=== PATIENT | male | born 1960 | race Caucasian/White ===

== ENCOUNTER 2019-09-05 20:30 | Emergency (ER) | payer MEDICAID ==
[~2019-09-05] VITALS: Ht 190.5 cm; Wt 149.7 kg
[2019-09-05 20:35] VITALS: BP_SYST 161
[2019-09-06] MEDS ORDERED: DIPH-TET-PERTUS Vaccine 0.5 ML VIAL (ADACEL) I.M. ONE (05:45)
[2019-09-06] MEDS ORDERED: BACITRACIN 1 GM OINT TP ONE (05:46)
[2019-09-06 05:55] VITALS: BP_SYST 150
== END 2019-09-06 05:55 | disposition home or self-care (01) ==
LOC: SED 20:30
DX: S61.012A Laceration without foreign body of left thumb without damage to nail, initial encounter (principal); W29.8XXA Contact with other powered hand tools and household machinery, initial encounter; Y93.89 Activity, other specified; Y92.89 Other specified places as the place of occurrence of the external cause; Y99.8 Other external cause status
CPT/HCPCS: 90715; 99283

== ENCOUNTER 2023-02-05 23:12 | Observation (INO) | payer MEDICAID ==
[~2023-02-05] VITALS: Ht 195.6 cm; Wt 145.1 kg
[2023-02-05 23:20] VITALS: BP_SYST 167
--- NOTE | 2023-02-05 23:20 | NUR ---
Placed in room 3 . Placed on bus monitor, blood pressure machine and pulse oximeter. To gown for exam. Side rails up. Report given to RADU ANDERSON(VANESSA).
--- NOTE | 2023-02-05 23:38 | NUR ---
FIRST CONTACT WITH PT. ASSESSMENT COMPLETED. AWAITING EVAL AND ORDERS.
--- NOTE | 2023-02-06 00:50 | NUR ---
PT RESTING WITH FAMILY AT BEDSIDE.
[2023-02-06 01:26] LABS: BASOPHILS # (AUTO) 0.1 K/uL (0.0-0.2); BASOPHILS % (AUTO) 0.8 % (0.0-2.0); EOSINOPHILS # (AUTO) 0.2 K/uL (0.0-0.4); EOSINOPHILS % (AUTO) 3.5 % (0.0-4.0); HEMATOCRIT 44.9 % (36-54); HEMOGLOBIN 15.7 g/dL (14.0-18.0); LYMPHOCYTES # (AUTO) 2.3 K/uL (1.0-5.5); MEAN CORPUSCULAR HEMOGLOBIN 31 pg (27-31); MEAN CORPUSCULAR HGB CONC 35 % (32-36); MEAN CORPUSCULAR VOLUME 88 fL (79.0-98.0); MONOCYTES # (AUTO) 0.6 K/uL (0.0-1.0); MONOCYTES % (AUTO) 9.5 % (1.7-9.3); NEUTROPHILS # (AUTO) 3.4 K/uL (1.8-7.7); NEUTROPHILS % (AUTO) 51.2 % (40.0-70.0); PLATELET COUNT (AUTO) 117 K/uL (130-430); RED BLOOD CELL COUNT(AUTO) 5.13 MIL/uL (4.2-6.2); WHITE BLOOD COUNT (AUTO) 6.6 K/uL (4.8-10.8)
[2023-02-06 01:38] LABS: ALANINE AMINOTRANSFERASE 61 U/L (12-78); ALBUMIN 3.2 g/dL (3.4-4.8); ANION GAP 7 (5-15); ASPARTATE AMINOTRANSFERASE 35 U/L (10-37); CALCIUM 8.8 mg/dL (8.4-11.0); CHLORIDE 100 mmol/L (98-107); CREATININE 1.13 mg/dL (0.55-1.30); FREE T4 (FREE THYROXINE) 1.1 ng/dl (0.8-1.5); GFR AFRICAN AMERICAN 85 mL/min (>90); GLUCOSE 176 mg/dL (70-99); PHOSPHORUS 3.3 mg/dL (2.7-4.5); THYROID STIMULATING HORMONE 6.39 uIu/mL (0.36-3.74); TOTAL BILIRUBIN 0.5 mg/dL (0.0-1.0); UREA NITROGEN, BLOOD 22 mg/dL (8-21)
--- NOTE | 2023-02-06 02:00 | NUR ---
PT RESTING WITH NO ACUTE DISTRESS.
--- NOTE | 2023-02-06 04:00 | NUR ---
PT ASLEEP. NO SIGNS OF DISTRESS.
--- NOTE | 2023-02-06 04:52 | NUR ---
Yuli wisdom in [facility] - 02/06/23 at 0454 by SANDEEP ADMISSION ORDERS FROM [facility]
--- NOTE | 2023-02-06 04:54 | NUR ---
ADMISSION ORDERS FROM [facility]
--- NOTE | 2023-02-06 05:00 | NUR ---
Note [email or web address] in ED - 02/06/23 at 0511 by SANDEEP Admit bed requested Patient will be admitted to care of . Admitted to TELE unit. Diagnosis CHEST PAIN Inpatient (Yes or No) Y Observation (Yes or No)N Orientation concerns or request close to nursing station (Yes or No) N Covid Status NA On vent or bipap N Isolation requirements N Needs a sitter N From Home (Yes or if No enter name of facility) Y Requires Dialysis (Yes or No) N Med Rec Completed (Yes of No) Y
--- NOTE | 2023-02-06 05:11 | NUR ---
Admit bed requested Patient will be admitted to care of . Admitted to TELE unit. Diagnosis CHEST PAIN Inpatient (Yes or No) N Observation (Yes or No) Y Orientation concerns or request close to nursing station (Yes or No) N Covid Status NA On vent or bipap N Isolation requirements N Needs a sitter N From Home (Yes or if No enter name of facility) Y Requires Dialysis (Yes or No) N Med Rec Completed (Yes of No) Y
[2023-02-06] MEDS ORDERED: INSU100I75 SUBCUT (05:35)
[2023-02-06] MEDS ORDERED: METF1000 PO (05:35)
[2023-02-06] MEDS ORDERED: TOPXL100 PO (05:35)
[2023-02-06] MEDS ORDERED: LISI40TA20 PO (05:35)
[2023-02-06] MEDS ORDERED: APIX5TAB PO (05:35)
[2023-02-06] MEDS ORDERED: HYDR25TA4 PO (05:40)
[2023-02-06] MEDS ORDERED: LOSA50TA3 PO (05:40)
[2023-02-06] MEDS ORDERED: LORA10TA68 PO (05:40)
[2023-02-06] MEDS ORDERED: AMIO200T66 PO (05:40)
--- NOTE | 2023-02-06 05:59 | NUR ---
Patient will be admitted to care of [facility]. Admitted to TELEunit. Will go to room 119A . Belongings list completed. Complete and up to date summary report printed. SBAR report to be given at bedside with opportunity for questions.
[2023-02-06 06:01] VITALS: BP_SYST 161
--- NOTE | 2023-02-06 07:30 | NUR ---
OPENING NOTE PT RESTING IN BED, BREATHING NON-LABORED AND REGULAR. DENIES ANY PAIN OR DISCOMFORT. IV S/L REMAIN INTACT AND PATENT. BED IS LOCKED AND AT LOW POSITION. SAFETY PRECAUTION IN PLACE. WILL CONT TO MONITOR FOR ANY CHANGES
[2023-02-06 08:00] VITALS: BP_SYST 145
[2023-02-06] MEDS ORDERED: ACETAMINOPHEN 325 MG TABLET PO PRN ×2 (11:15→11:45)
[2023-02-06] MEDS ORDERED: ONDANSETRON HCL 4 MG/2 ML VIAL IVP PRN (11:15)
[2023-02-06] MEDS ORDERED: HYDROcodone/ACETAMIN 10-325 MG TAB PO PRN (11:15)
[2023-02-06] MEDS ORDERED: NALOXONE HCL 0.4 MG/ML AMP (NARCAN) IVP PRN ×2 (11:15)
[2023-02-06] MEDS ORDERED: HYDROcodone/ACETAMIN 5-325 MG TAB (NORCO/ VICODIN) PO PRN (11:15)
[2023-02-06] MEDS ORDERED: LORazepam 2 MG/ML VIAL IVP PRN (11:15)
--- NOTE | 2023-02-06 11:32 | NUR ---
NOTES; PT RESTING ON BED, DENIES ANY ACUTE DISTRESS OR PAIN NOTED. BED IS LOCKED AND AT LOW POSITION. WILL CONT TO MONITOR FOR ANY CHANGES
[2023-02-06] MEDS ORDERED: lisinopriL 20 MG TABLET PO ONE (11:45)
[2023-02-06] MEDS ORDERED: LORATADINE 10 MG TABLET PO ONE (11:45)
[2023-02-06] MEDS ORDERED: METOPROLOL SUCCINATE 50 MG TAB.SR.24H (TOPROL XL) PO ONE (11:45)
[2023-02-06] MEDS ORDERED: APIXABAN 2.5 MG TABLET PO ONE (11:45)
[2023-02-06] MEDS ORDERED: LOSARTAN POTASSIUM 50 MG TABLET (COZAAR) PO ONE (11:45)
[2023-02-06] MEDS ORDERED: metFORMIN HCL 500 MG TABLET PO ONE (11:45)
[2023-02-06 11:52] LABS: BASOPHILS % (AUTO) 0.8 % (0.0-2.0); EOSINOPHILS # (AUTO) 0.2 K/uL (0.0-0.4); EOSINOPHILS % (AUTO) 3.2 % (0.0-4.0); HEMATOCRIT 44.1 % (36-54); HEMOGLOBIN 15.4 g/dL (14.0-18.0); LYMPHOCYTES # (AUTO) 1.7 K/uL (1.0-5.5); LYMPHOCYTES % (AUTO) 30.3 % (20.5-51.5); MEAN CORPUSCULAR HEMOGLOBIN 31 pg (27-31); MEAN CORPUSCULAR HGB CONC 35 % (32-36); MEAN CORPUSCULAR VOLUME 89 fL (79.0-98.0); MONOCYTES # (AUTO) 0.6 K/uL (0.0-1.0); MONOCYTES % (AUTO) 9.8 % (1.7-9.3); NEUTROPHILS # (AUTO) 3.1 K/uL (1.8-7.7); NEUTROPHILS % (AUTO) 55.9 % (40.0-70.0); PLATELET COUNT (AUTO) 101 K/uL (130-430); RED BLOOD CELL COUNT(AUTO) 4.97 MIL/uL (4.2-6.2); RED CELL DISTRIBUTION WIDTH 13.1 % (9.0-15.0); WHITE BLOOD COUNT (AUTO) 5.6 K/uL (4.8-10.8)
[2023-02-06 12:11] LABS: CALCIUM 8.4 mg/dL (8.4-11.0); CREATININE 1.14 mg/dL (0.55-1.30)
[2023-02-06] MEDS ORDERED: NORMAL SALINE 5 ML DISP.SYRIN IVF SCH ×2 (14:00)
[2023-02-06 14:16] VITALS: BP_SYST 133
[2023-02-06] MEDS ORDERED: metFORMIN HCL 500 MG TABLET PO SCH (21:00)
[2023-02-06] MEDS ORDERED: APIXABAN 2.5 MG TABLET PO SCH (21:00)
[2023-02-07] MEDS ORDERED: LOSARTAN POTASSIUM 50 MG TABLET (COZAAR) PO SCH (09:00)
[2023-02-07] MEDS ORDERED: AMIODARONE HCL 200 MG TABLET PO SCH (09:00)
[2023-02-07] MEDS ORDERED: lisinopriL 20 MG TABLET PO SCH (09:00)
[2023-02-07] MEDS ORDERED: LORATADINE 10 MG TABLET PO SCH (09:00)
[2023-02-07] MEDS ORDERED: METOPROLOL SUCCINATE 50 MG TAB.SR.24H (TOPROL XL) PO SCH (09:00)
== END 2023-02-06 14:40 | disposition home or self-care (01) ==
LOC: SED 23:12 → STU 02-06 05:11
PROVIDERS: ADMIT Preventive Medicine Preventive Medicine/Occupational Environmental Medicine; ATTEND Preventive Medicine Preventive Medicine/Occupational Environmental Medicine
DX: R07.89 Other chest pain (principal); I48.91 Unspecified atrial fibrillation; I10 Essential (primary) hypertension; E11.9 Type 2 diabetes mellitus without complications; R79.89 Other specified abnormal findings of blood chemistry; E11.65 Type 2 diabetes mellitus with hyperglycemia; E88.09 Other disorders of plasma-protein metabolism, not elsewhere classified; E03.9 Hypothyroidism, unspecified; Z79.899 Other long term (current) drug therapy; Z86.79 Personal history of other diseases of the circulatory system; Z95.810 Presence of automatic (implantable) cardiac defibrillator
CPT/HCPCS: 93005; 71045; 99285; 80061; 80053; 83880; 84439; 83735; 84100; 84443; 85025; 84484; 36415; 93306; 80048; G0378

== ENCOUNTER 2023-12-30 15:55 | Inpatient (IN) | payer MEDICAID ==
[~2023-12-30] VITALS: Ht 190.5 cm; Wt 99.8 kg
[~2023-12-30 15:55] MED LIST: AMIO200T66 PO; APIX5TAB PO; HYDR25TA4 PO; INSU100I75 SUBCUT; LISI40TA20 PO; LORA10TA68 PO; LOSA-413 PO; METF1000 PO; TOPXL100 PO
[2023-12-30 16:01] VITALS: BP_SYST 156; PULSE 122; RESP 22; TEMP 98.4; O2SAT 95
[2023-12-30] MEDS ORDERED: cloNIDine HCL 0.1 MG TABLET ONE (16:08)
[2023-12-30 16:55] LABS: BASOPHILS # (AUTO) 0.1 K/uL (0.0-0.2); BASOPHILS % (AUTO) 0.8 % (0.0-2.0); EOSINOPHILS # (AUTO) 0.2 K/uL (0.0-0.4); EOSINOPHILS % (AUTO) 3.8 % (0.0-4.0); HEMATOCRIT 44.9 % (36-54); HEMOGLOBIN 15.7 g/dL (14.0-18.0); LYMPHOCYTES % (AUTO) 30.5 % (20.5-51.5); MEAN CORPUSCULAR HEMOGLOBIN 31 pg (27-31); MEAN CORPUSCULAR HGB CONC 35 % (32-36); MEAN CORPUSCULAR VOLUME 89 fL (79.0-98.0); MONOCYTES # (AUTO) 0.6 K/uL (0.0-1.0); NEUTROPHILS # (AUTO) 3.6 K/uL (1.8-7.7); NEUTROPHILS % (AUTO) 55.9 % (40.0-70.0); PLATELET COUNT (AUTO) 142 K/uL (130-430); RED BLOOD CELL COUNT(AUTO) 5.07 MIL/uL (4.2-6.2); RED CELL DISTRIBUTION WIDTH 13.3 % (9.0-15.0); WHITE BLOOD COUNT (AUTO) 6.4 K/uL (4.8-10.8)
[2023-12-30 17:01] LABS: PROTHROMBIN TIME 10.8 SECS (9.5-12.5)
[2023-12-30 17:06] LABS: CALCIUM 8.7 mg/dL (8.4-11.0); CREATININE 1.5 mg/dL (0.55-1.30); POTASSIUM 4.4 mmol/L (3.5-5.1)
[2023-12-30 17:07] LABS: ALBUMIN 3.5 g/dL (3.4-4.8); BILIRUBIN,DIRECT 0.2 mg/dL (0.0-0.3); TOTAL BILIRUBIN 0.7 mg/dL (0.0-1.0); TOTAL PROTEIN, SERUM 7.5 g/dL (6.4-8.3)
[2023-12-30] MEDS: dilTIAZem HCL IVP 5 MG/ML VIAL IVP ONE (17:11)
[2023-12-30] MEDS: DILTIAZEM HCL 60 MG TABLET PO ONE (17:11)
[2023-12-30] MEDS ORDERED: FENO160 PO (19:50)
[2023-12-30] MEDS ORDERED: AMLO5TAB4 PO (19:50)
[2023-12-30] MEDS ORDERED: TIRZ12.5 SQ (19:50)
[2023-12-30] MEDS ORDERED: GLUCOSE (DEXTROSE) ORAL GEL -Adults PO PRN (22:45)
[2023-12-30] MEDS ORDERED: D5W 1,000 ML IV PRN (22:45)
[2023-12-30] MEDS ORDERED: NALOXONE HCL 0.4 MG/ML AMP (NARCAN) IVP PRN ×2 (22:45)
[2023-12-30] MEDS ORDERED: LORazepam 2 MG/ML VIAL IVP PRN (22:45)
[2023-12-30] MEDS ORDERED: ONDANSETRON HCL 4 MG/2 ML VIAL IVP PRN (22:45)
[2023-12-30] MEDS ORDERED: ACETAMINOPHEN 325 MG TABLET PO PRN (22:45)
[2023-12-31] MEDS: HYDROcodone/ACETAMIN 5-325 MG TAB (NORCO/ VICODIN) PO PRN (06:58)
[2023-12-31 07:00] LABS: BASOPHILS % (AUTO) 0.8 % (0.0-2.0); EOSINOPHILS # (AUTO) 0.2 K/uL (0.0-0.4); EOSINOPHILS % (AUTO) 3.4 % (0.0-4.0); HEMATOCRIT 41.1 % (36-54); HEMOGLOBIN 14.3 g/dL (14.0-18.0); LYMPHOCYTES # (AUTO) 1.6 K/uL (1.0-5.5); LYMPHOCYTES % (AUTO) 27.1 % (20.5-51.5); MEAN CORPUSCULAR HEMOGLOBIN 31 pg (27-31); MEAN CORPUSCULAR HGB CONC 35 % (32-36); MEAN CORPUSCULAR VOLUME 89 fL (79.0-98.0); MONOCYTES # (AUTO) 0.5 K/uL (0.0-1.0); NEUTROPHILS # (AUTO) 3.5 K/uL (1.8-7.7); NEUTROPHILS % (AUTO) 59.7 % (40.0-70.0); PLATELET COUNT (AUTO) 130 K/uL (130-430); RED CELL DISTRIBUTION WIDTH 13.1 % (9.0-15.0); WHITE BLOOD COUNT (AUTO) 5.9 K/uL (4.8-10.8)
[2023-12-31 07:34] LABS: ALBUMIN 2.8 g/dL (3.4-4.8); CREATININE 1.3 mg/dL (0.55-1.30); PHOSPHORUS 3.1 mg/dL (2.7-4.5); POTASSIUM 3.9 mmol/L (3.5-5.1); TOTAL BILIRUBIN 0.7 mg/dL (0.0-1.0); TOTAL PROTEIN, SERUM 6.4 g/dL (6.4-8.3)
[2023-12-31] MEDS: INSULIN REGULAR, HUMAN 100 UNITS/ML, 3 ML VIAL (humuLIN R) SUBCUT PRN (08:03)
[2023-12-31] MEDS ORDERED: INSULIN REGULAR, HUMAN 10 UNITS/0.1 ML, 3 ML VIAL ONE (08:08)
[2023-12-31 09:37] VITALS: BP_SYST 116; PULSE 108; RESP 20; TEMP 98.1
[2023-12-31 09:55] VITALS: O2SAT 99
[2023-12-31] MEDS: LORATADINE 10 MG TABLET PO SCH (10:12)
[2023-12-31] MEDS: metFORMIN HCL 500 MG TABLET PO SCH (10:13)
[2023-12-31] MEDS: HYDROCHLOROTHIAZIDE 25 MG TABLET (HCTZ) PO SCH (10:14)
[2023-12-31] MEDS: amLODIPine BESYLATE 5 MG TABLET PO SCH (10:14)
[2023-12-31] MEDS: LOSARTAN POTASSIUM 50 MG TABLET (COZAAR) PO SCH (10:15)
[2023-12-31] MEDS: AMIODARONE HCL 200 MG TABLET PO SCH ×2 (10:16→20:14)
[2023-12-31] MEDS: METOPROLOL SUCCINATE 50 MG TAB.SR.24H (TOPROL XL) PO SCH ×2 (10:17→20:16)
[2023-12-31] MEDS: INSULIN GLARGINE 100 UNITS/ML, 10 ML VIAL SUBCUT SCH (10:19)
[2023-12-31] MEDS: FENOFIBRATE 160 MG TABLET PO SCH (10:20)
[2023-12-31 12:00] VITALS: BP_SYST 120; PULSE 102; RESP 20; TEMP 98; O2SAT 98
[2023-12-31] MEDS: HYDROcodone/ACETAMIN 10-325 MG TAB PO PRN (14:54)
[2023-12-31 16:00] VITALS: BP_SYST 119; PULSE 99; RESP 18; TEMP 97.6; O2SAT 99
[2023-12-31 20:01] VITALS: BP_SYST 140; PULSE 115; RESP 19; TEMP 98.4; O2SAT 95
[2024-01-01 00:05] VITALS: BP_SYST 150; PULSE 117; RESP 19; TEMP 98.1
[2024-01-01 05:14] LABS: BASOPHILS # (AUTO) 0.1 K/uL (0.0-0.2); BASOPHILS % (AUTO) 0.5 % (0.0-2.0); EOSINOPHILS # (AUTO) 0.1 K/uL (0.0-0.4); EOSINOPHILS % (AUTO) 0.7 % (0.0-4.0); HEMATOCRIT 45.1 % (36-54); HEMOGLOBIN 15.6 g/dL (14.0-18.0); LYMPHOCYTES # (AUTO) 1.4 K/uL (1.0-5.5); LYMPHOCYTES % (AUTO) 12.4 % (20.5-51.5); MEAN CORPUSCULAR HEMOGLOBIN 31 pg (27-31); MEAN CORPUSCULAR HGB CONC 35 % (32-36); MEAN CORPUSCULAR VOLUME 89 fL (79.0-98.0); MONOCYTES # (AUTO) 1.1 K/uL (0.0-1.0); NEUTROPHILS # (AUTO) 8.4 K/uL (1.8-7.7); NEUTROPHILS % (AUTO) 76.4 % (40.0-70.0); PLATELET COUNT (AUTO) 152 K/uL (130-430); RED BLOOD CELL COUNT(AUTO) 5.06 MIL/uL (4.2-6.2); RED CELL DISTRIBUTION WIDTH 13.4 % (9.0-15.0)
[2024-01-01 05:35] LABS: CALCIUM 8.7 mg/dL (8.4-11.0); CREATININE 1.35 mg/dL (0.55-1.30); POTASSIUM 3.8 mmol/L (3.5-5.1)
[2024-01-01 08:05] VITALS: O2SAT 94
[2024-01-01 08:30] VITALS: BP_SYST 134; PULSE 108; RESP 17; TEMP 97.5; O2SAT 94
[2024-01-01] MEDS ORDERED: AMIO200T66 PO (10:41)
[2024-01-01] MEDS ORDERED: TOPXL100 PO (10:41)
[2024-01-01] MEDS: DIGOXIN 0.25 MG TABLET PO ONE ×2 (11:52→15:00)
[2024-01-01 12:03] VITALS: BP_SYST 149; PULSE 112; RESP 18; TEMP 98.2; O2SAT 96
[2024-01-01 14:26] VITALS: BP_SYST 134; PULSE 108; RESP 19; TEMP 97.5; O2SAT 94
[2024-01-01] MEDS ORDERED: METOPROLOL SUCCINATE 50 MG TAB.SR.24H (TOPROL XL) PO SCH (21:00)
[2024-01-01] MEDS ORDERED: DIGOXIN 0.125 MG TABLET PO ONE (21:00)
== END 2024-01-01 18:55 | disposition home or self-care (01) | DRG 201 ==
LOC: SED 15:55 → STU 19:50
PROVIDERS: ADMIT Preventive Medicine Preventive Medicine/Occupational Environmental Medicine; ATTEND Preventive Medicine Preventive Medicine/Occupational Environmental Medicine
DX: I48.92 Unspecified atrial flutter (principal); R65.11 Systemic inflammatory response syndrome (SIRS) of non-infectious origin with acute organ dysfunction; N17.9 Acute kidney failure, unspecified; I25.10 Atherosclerotic heart disease of native coronary artery without angina pectoris; I10 Essential (primary) hypertension; E11.65 Type 2 diabetes mellitus with hyperglycemia; E78.5 Hyperlipidemia, unspecified; Z79.899 Other long term (current) drug therapy; T50.2X5A Adverse effect of carbonic-anhydrase inhibitors, benzothiadiazides and other diuretics, initial encounter
CPT/HCPCS: 36415; 80048; 80053; 80076; 82948; 83735; 84100; 84484; 85025; 85610; 85730; 93005; 93306; 99285; G0378; J1815; J3490